=== PATIENT | male | born 1980 ===

== ENCOUNTER 2023-06-05 15:50 | Emergency (ER) | payer BC ==
[~2023-06-05] VITALS: Ht 167.6 cm; Wt 111.4 kg
[2023-06-05 16:04] VITALS: TEMP 98.8
[2023-06-05] MEDS ORDERED: NS 1,000 ML IV ONE (16:30)
[2023-06-05 16:52] LABS: BASO # 0.1 K/mm3 (0.0-0.2); BASO % 1.1 % (0.0-2.0); EOS # 0.2 K/mm3 (0.0-0.7); EOS % 1.6 % (0.0-4.0); GRAN % 71.7 % (42.2-75.2); HEMATOCRIT 46.6 % (42.0-52.0); HEMOGLOBIN 15.9 g/dl (13.5-18.0); LYMPH # 1.9 K/mm3 (1.2-3.4); LYMPH % 19.3 % (20.0-51.0); MEAN CELL VOLUME 86 fl (80.0-100.0); MEAN CORPUSCULAR HEMOGLOBIN 29 pg (27-31); MEAN CORPUSCULAR HGB CONC 34 g/dl (33.0-37.0); MEAN PLATELET VOLUME 9.3 fl (7.4-10.4); MONO # 0.5 K/mm3 (0.1-0.6); MONO % 5.5 % (1.7-9.3); PLATELET COUNT 353 K/mm3 (130-400); REDCELL DISTRIBUTION WIDTH-CV 12.3 % (11.5-14.5)
[2023-06-05 17:15] LABS: ALANINE AMINOTRANSFERASE 35 U/L (0-55); ALBUMIN 4.1 gm/dL (3.5-5.0); ALKALINE PHOSPHATASE 106 U/L (40-150); ANION GAP 12 mmol/L (7-16); AST,SGOT 23 U/L (5-34); BILIRUBIN,TOTAL 0.3 mg/dL (0.2-1.2); BLOOD UREA NITROGEN 10 mg/dL (9-21); CHLORIDE 104 mmol/L (98-107); CREATININE, serum 0.93 mg/dL (0.72-1.25); GLUCOSE 105 mg/dL (70-99); POTASSIUM 3.7 mmol/L (3.5-4.5); SODIUM 139 mmol/L (136-145)
[2023-06-05 17:21] LABS: TROPONIN-I < 0.010 ng/mL (0.00-0.033)
[2023-06-05] MEDS ORDERED: NORVASC 5MG5 MG/TAB PO (18:06)
[2023-06-05 18:14] VITALS: BP 132/92; PULSE 88
[2023-06-05] MEDS ORDERED: amLODIPine 5 MG TAB PO ONE (18:15)
== END 2023-06-05 18:19 | disposition home or self-care (01) ==
LOC: COL.ER 15:50
PROVIDERS: Personal Emergency Response Attendant
DX: I10 Essential (primary) hypertension (principal); Z79.899 Other long term (current) drug therapy
CPT/HCPCS: J7030